=== PATIENT | female | born 1985 | race American Indian/Alaskan Native ===

== ENCOUNTER 2016-09-28 12:35 | Emergency (ER) | payer OTHER ==
--- NOTE | 2016-09-28 16:48 | Emergency Department Report ---
ED ENT HPI - General Chief complaint: Sore Throat Stated complaint: SORE THROAT Source: patient, family Mode of arrival: Ambulatory Limitations: No Limitations - History of Present Illness MD complaint: sore throat, difficulty swallowing -: Gradual Location: throat Severity: mild Quality: constant Consistency: constant Worsens with: swallowing, eating Associated Symptoms: pain with swallowing, sore throat. denies: fever, cough, toothache - Related Data Previous Rx's Medication Instructions Recorded Last Taken Type Ketorolac [Toradol] 10 mg PO Q6H PRN #20 tablet 09/28/16 Unknown Rx Allergies Allergy/AdvReac Type Severity Reaction Status Date / Time No Known Allergies Allergy Unverified 09/28/16 13:07 ED Dental HPI - General Chief complaint: Sore Throat Stated complaint: SORE THROAT - Related Data Previous Rx's Medication Instructions Recorded Last Taken Type Ketorolac [Toradol] 10 mg PO Q6H PRN #20 tablet 09/28/16 Unknown Rx Allergies Allergy/AdvReac Type Severity Reaction Status Date / Time No Known Allergies Allergy Unverified 09/28/16 13:07 ED Review of Systems ROS: Stated complaint: SORE THROAT Other details as noted in HPI Constitutional: denies: chills, fever Eyes: denies: eye pain, eye discharge, vision change ENT: throat pain. denies: ear pain, dental pain, congestion Respiratory: denies: cough, shortness of breath, wheezing Cardiovascular: denies: chest pain, palpitations Endocrine: no symptoms reported Gastrointestinal: denies: abdominal pain, nausea, diarrhea Genitourinary: denies: urgency, dysuria, discharge Musculoskeletal: denies: back pain, joint swelling, arthralgia Skin: denies: rash, lesions Neurological: denies: headache, weakness, paresthesias Psychiatric: denies: anxiety, depression Hematological/Lymphatic: denies: easy bleeding, easy bruising ED Past Medical Hx - Past Medical History Previous Medical History?: No - Surgical History Past Surgical History?: No - Social History Smoking Status: Never Smoker Substance Use Type: None - Medications Home Medications: Home Medications Medication Instructions Recorded Confirmed Last Taken Type Ketorolac [Toradol] 10 mg PO Q6H PRN #20 tablet 09/28/16 Unknown Rx ED Physical Exam - General Limitations: Language Barrier General appearance: alert, in no apparent distress - Head Head exam: Present: atraumatic, normocephalic - Eye Eye exam: Present: normal appearance, PERRL, EOMI - ENT ENT exam: Present: normal exam, normal orophraynx, mucous membranes moist, TM's normal bilaterally - Neck Neck exam: Present: normal inspection - Respiratory Respiratory exam: Present: normal lung sounds bilaterally. Absent: respiratory distress, wheezes, stridor - Cardiovascular Cardiovascular Exam: Present: regular rate, normal rhythm. Absent: systolic murmur, diastolic murmur, rubs, gallop - GI/Abdominal GI/Abdominal exam: Present: soft, normal bowel sounds. Absent: tenderness, guarding - Extremities Exam Extremities exam: Present: normal inspection - Back Exam Back exam: Present: normal inspection - Neurological Exam Neurological exam: Present: alert, oriented X3, normal gait - Psychiatric Psychiatric exam: Present: normal affect, normal mood - Skin Skin exam: Present: warm, dry, intact, normal color. Absent: rash ED Course Vital Signs 09/28/16 13:08 Temperature 98.2 F Pulse Rate 97 H Blood Pressure 114/72 ED Medical Decision Making - Lab Data Negative strep test. Culture pending. - Medical Decision Making 31 year old female presents to ED with sore throat x2 days. patient has no signs of swelling or abscess on examination and is afebrile. patient is stable, neurologically intact and in no acute distress. patient was given codeine syrup and toradol for pain relief during ED visit and RX for toradol for pain management. Critical care attestation.: If time is entered above; I have spent that time in minutes in the direct care of this critically ill patient, excluding procedure time. ED Disposition Clinical Impression: Viral pharyngitis Disposition: DISCHARGED TO HOME OR SELFCARE Is pt being admited?: No Does the pt Need Aspirin: No Condition: Stable Prescriptions: Ketorolac [Toradol] 10 mg PO Q6H PRN #20 tablet PRN Reason: Pain Referrals: PRIMARY CARE,MD [Primary Care Provider] - 3-5 Days Forms: Work/School Release Form(ED)
[2016-09-28] MEDS ORDERED: TORADOL IM ONE (17:44)
[2016-09-28] MEDS ORDERED: PHENERGAN/CODEINE 6.25-10 MG/5ML PO ONE (18:00)
[2016-09-28 18:15] VITALS: BP 123/71
== END 2016-09-28 18:15 | disposition home or self-care (01) ==
LOC: ED 12:35
DX: J02.9 Acute pharyngitis, unspecified (principal)
CPT/HCPCS: 81025; 87116; 87430; 96372; 99283; J1885

== ENCOUNTER 2016-10-04 10:29 | Inpatient (IN) | payer OTHER ==
[2016-10-04 11:55] LABS: Basophils % (Auto) 0.3 % (0.0-1.8); Eosinophils % (Auto) 0.7 % (0.0-4.3); Hematocrit 35.9 % (30.3-42.9); Hemoglobin 11.7 gm/dl (10.1-14.3); Mean Corpuscular HGB Conc 33 % (30-34); Mean Corpuscular Hemoglobin 27 pg (28-32); Mean Corpuscular Volume 83 fl (79-97); Platelet Count 171 K/mm3 (140-440); Red Blood Count 4.35 M/mm3 (3.65-5.03); Red Cell Distribution Width 13.2 % (13.2-15.2); White Blood Count 5.4 K/mm3 (4.5-11.0)
[2016-10-04 12:17] LABS: Albumin 3.6 g/dL (3.9-5); Albumin/Globulin Ratio 1.2 %; BUN/Creatinine Ratio 5.9; Bilirubin,Total 0.4 mg/dL (0.1-1.2); Calcium 8.8 mg/dL (8.4-10.2); Chloride 105.5 mmol/L (98-107); Potassium 4.1 mmol/L (3.6-5.0); Total Protein 6.5 g/dL (6.3-8.2)
[2016-10-04] MEDS ORDERED: NACL 0.9% 1000 ML 1,000 ML IV ONE (17:01)
[2016-10-04] MEDS ORDERED: MORPHINE IV ONE (17:01)
[2016-10-04] MEDS ORDERED: ZOFRAN IV ONE (17:01)
[2016-10-04 17:53] LABS: Bilirubin,Urine NEG (Negative); Blood,Urine NEG (Negative); Ketones,Urine NEG (Negative); Leukocyte Esterase,Urine SM (Negative); Mucus,Urine FEW /HPF; Nitrite,Urine NEG (Negative); Urobilinogen,Urine < 2.0 mg/dL (<2.0)
--- NOTE | 2016-10-04 17:59 | Emergency Department Report ---
ED Abdominal Pain HPI - General Chief Complaint: Abdominal Pain Stated Complaint: ABD PAIN Time Seen by Provider: 10/04/16 16:50 Source: patient, old records reviewed Mode of arrival: Ambulatory Limitations: No Limitations - History of Present Illness Initial Comments: 31-year-old female with no significant past medical history presents hospital complaining of abdominal pain, nausea, and vomiting 3 days. Patient was seen here on September 28 for sore throat. Diagnosed with viral pharyngitis after negative stress test. Discharged on Toradol. Patient developed GI symptoms for the past 3 days. Complains of constant lower abdominal pain radiating to the back with by mouth intolerance secondary to vomiting. Denies diarrhea, melena, hematochezia, or documented fever. Patient unable to characterize pain , moderate in intensity and worse with palpation. - Related Data Previous Rx's Medication Instructions Recorded Last Taken Type Ketorolac [Toradol] 10 mg PO Q6H PRN #20 tablet 09/28/16 Unknown Rx Allergies Allergy/AdvReac Type Severity Reaction Status Date / Time No Known Allergies Allergy Unverified 09/28/16 13:07 ED Review of Systems ROS: Stated complaint: ABD PAIN Other details as noted in HPI Comment: All other systems reviewed and negative Other: Constitutional: No fevers chills or weight loss Eyes: No eye pain visual changes or discharge ENT: No ear pain or throat pain Neck: Denies pain Respiratory: Denies cough wheezing shortness of breath Cardiovascular: Denies chest pain, palpitations, syncope GI: As per HPI : Denies dysuria Musculoskeletal: Pain radiates to the back Skin: Denies rash, lesions, erythema Neurologic: Denies headache, numbness, weakness Psychiatric: Denies suicidal ideation, hallucinations ED Past Medical Hx - Past Medical History Previous Medical History?: No - Surgical History Past Surgical History?: No - Social History Smoking Status: Never Smoker Substance Use Type: None - Medications Home Medications: Home Medications Medication Instructions Recorded Confirmed Last Taken Type Ketorolac [Toradol] 10 mg PO Q6H PRN #20 tablet 09/28/16 Unknown Rx ED Physical Exam - General Limitations: No Limitations - Other Other exam information: General: No limitations, patient is alert in no acute distress Head exam: Atraumatic, normocephalic Eyes exam: Normal appearance, pupils equal reactive to light, extraocular movements intact ENT: Moist mucous membrane, normal oropharynx Neck exam: Normal inspection, full range of motion, no meningismus nontender Respiratory exam: Clear to auscultation bilateral, no wheezes, rales, crackles Cardiovascular: Normal rate and rhythm, normal heart sounds Abdomen: Soft, nondistended, right lower quadrant tenderness, with normal bowel sounds, no rebound, or guarding : No external lesions, white vaginal discharge, no CMT or adnexal tenderness Extremity: Full range of motion normal inspection no deformity Back: Normal Inspection, full range of motion, no tenderness Neurologic: Alert, oriented x3, cranial nerves intact, no motor or sensory deficit Psychiatric: normal affect, normal mood Skin: Warm, dry, intact ED Course Vital Signs 10/04/16 10/04/16 10/04/16 11:07 17:38 21:06 Temperature 98.5 F 98.8 F Pulse Rate 70 58 L 62 Respiratory 18 16 16 Rate Blood Pressure 109/71 Blood Pressure 116/72 128/78 [Left] O2 Sat by Pulse 100 96 100 Oximetry - Reevaluation(s) Reevaluation #1: 10/04/16 20:38 pt reports feeling better with ED treatment. - Consultations Consultation #1: 10/04/16 20:09 case d/w Nephro Dr Sanchez, Rec admission for renal insufficiency and vomiting ED Medical Decision Making - Lab Data Result diagrams: 10/04/16 11:14 10/04/16 11:14 Lab Results 10/04/16 10/04/16 10/04/16 Range/Units 11:14 11:14 17:16 WBC 5.4 (4.5-11.0) K/mm3 RBC 4.35 (3.65-5.03) M/mm3 Hgb 11.7 (10.1-14.3) gm/dl Hct 35.9 (30.3-42.9) % MCV 83 (79-97) fl MCH 27 L (28-32) pg MCHC 33 (30-34) % RDW 13.2 (13.2-15.2) % Plt Count 171 (140-440) K/mm3 Lymph % (Auto) 27.7 (13.4-35.0) % [place] % (Auto) 10.3 H (0.0-7.3) % Eos % (Auto) 0.7 (0.0-4.3) % Baso % (Auto) 0.3 (0.0-1.8) % Lymph # 1.5 (1.2-5.4) K/mm3 [place] # 0.6 (0.0-0.8) K/mm3 Eos # 0.0 (0.0-0.4) K/mm3 Baso # 0.0 (0.0-0.1) K/mm3 Seg Neutrophils % 61.0 (40.0-70.0) % Seg Neutrophils # 3.3 (1.8-7.7) K/mm3 Sodium 144 (137-145) mmol/L Potassium 4.1 (3.6-5.0) mmol/L Chloride 105.5 (98-107) mmol/L Carbon Dioxide 23 (22-30) mmol/L Anion Gap 20 mmol/L BUN 13 (7-17) mg/dL Creatinine 2.2 H (0.7-1.2) mg/dL Estimated GFR 31 ml/min BUN/Creatinine Ratio 5.90 % Glucose 91 (65-100) mg/dL Calcium 8.8 (8.4-10.2) mg/dL Total Bilirubin 0.40 (0.1-1.2) mg/dL AST 13 (5-40) units/L ALT 12 (7-56) units/L Alkaline Phosphatase 42 (35-129) units/L Total Protein 6.5 (6.3-8.2) g/dL Albumin 3.6 L (3.9-5) g/dL Albumin/Globulin Ratio 1.2 % Lipase 26 (13-60) units/L Urine Color Yellow (Yellow) Urine Turbidity Slightly-cloudy (Clear) Urine pH 6.0 (5.0-7.0) Ur Specific [place] 1.005 (1.003-1.030) Urine Protein 30 mg/dl (Negative) mg/dL Urine Glucose (UA) Neg (Negative) mg/dL Urine Ketones Neg (Negative) mg/dL Urine Blood Neg (Negative) Urine Nitrite Neg (Negative) Urine Bilirubin Neg (Negative) Urine Urobilinogen < 2.0 (<2.0) mg/dL Ur Leukocyte Esterase Sm (Negative) Urine WBC (Auto) 9.0 H (0.0-6.0) /HPF Urine RBC (Auto) 1.0 (0.0-6.0) /HPF U Epithel Cells (Auto) 8.0 (0-13.0) /HPF Urine Mucus Few /HPF Urine HCG, Qual (Negative) 10/04/16 Range/Units 17:16 WBC (4.5-11.0) K/mm3 RBC (3.65-5.03) M/mm3 Hgb (10.1-14.3) gm/dl Hct (30.3-42.9) % MCV (79-97) fl MCH (28-32) pg MCHC (30-34) % RDW (13.2-15.2) % Plt Count (140-440) K/mm3 Lymph % (Auto) (13.4-35.0) % [place] % (Auto) (0.0-7.3) % Eos % (Auto) (0.0-4.3) % Baso % (Auto) (0.0-1.8) % Lymph # (1.2-5.4) K/mm3 [place] # (0.0-0.8) K/mm3 Eos # (0.0-0.4) K/mm3 Baso # (0.0-0.1) K/mm3 Seg Neutrophils % (40.0-70.0) % Seg Neutrophils # (1.8-7.7) K/mm3 Sodium (137-145) mmol/L Potassium (3.6-5.0) mmol/L Chloride (98-107) mmol/L Carbon Dioxide (22-30) mmol/L Anion Gap mmol/L BUN (7-17) mg/dL Creatinine (0.7-1.2) mg/dL Estimated GFR ml/min BUN/Creatinine Ratio % Glucose (65-100) mg/dL Calcium (8.4-10.2) mg/dL Total Bilirubin (0.1-1.2) mg/dL AST (5-40) units/L ALT (7-56) units/L Alkaline Phosphatase (35-129) units/L Total Protein (6.3-8.2) g/dL Albumin (3.9-5) g/dL Albumin/Globulin Ratio % Lipase (13-60) units/L Urine Color (Yellow) Urine Turbidity (Clear) Urine pH (5.0-7.0) Ur Specific [place] (1.003-1.030) Urine Protein (Negative) mg/dL Urine Glucose (UA) (Negative) mg/dL Urine Ketones (Negative) mg/dL Urine Blood (Negative) Urine Nitrite (Negative) Urine Bilirubin (Negative) Urine Urobilinogen (<2.0) mg/dL Ur Leukocyte Esterase (Negative) Urine WBC (Auto) (0.0-6.0) /HPF Urine RBC (Auto) (0.0-6.0) /HPF U Epithel Cells (Auto) (0-13.0) /HPF Urine Mucus /HPF Urine HCG, Qual Negative (Negative) wet prep <20 clue cells, neg trich, neg yeast, gc/chl pending - Radiology Data Radiology results: report reviewed (ct abd/pelvis noncontrast: naf) - Medical Decision Making Patient CT unremarkable. She is feeling better with ED treatment. Case was discussed with nephrology. Admission recommended given the patient's acute vomiting in the setting of renal sufficiency. No previous creatinine available for comparison. No acute acidosis evidence on BMP. I suspect that Toradol may be the culprit in acute renal insufficiency. - Differential Diagnosis gastritis, appendicitis, gastroenteritis, UTI, cervicitis Critical Care Time: No Critical care attestation.: If time is entered above; I have spent that time in minutes in the direct care of this critically ill patient, excluding procedure time. ED Disposition Clinical Impression: Acute renal insufficiency, Vomiting, Abdominal pain Disposition: OP ADMITTED IP TO THIS HOSP Is pt being admited?: Yes Condition: Stable Time of Disposition: 20:40 (Dr Lopez/hosp)
--- NOTE | 2016-10-04 20:23 | Cat Scan Report ---
FINAL REPORT EXAM: CT ABDOMEN PELVIS WO CON HISTORY: rlq pain, vomiting TECHNIQUE: CT images obtained through the Abdomen and Pelvis following only oral administration of contrast. Transaxial,coronal and sagittal reformats are provided. PRIORS: None. FINDINGS: Imaged intrathoracic contents are unremarkable. Kidneys are normal in size, axis and position. No hydronephrosis or nephrolithiasis. The ureters are normal in course and caliber. No stones are seen within the urinary bladder. The liver, gallbladder, pancreas, spleen, and adrenal glands demonstrate a normal noncontrast appearance. Hollow enteric organs are normal in course and caliber. Positive enteric contrast is seen as far distally as the ileum appendix is normal. No intra-abdominal free air/fluid or lymphadenopathy. Aorta is normal in course and caliber. Anteverted uterus. No free fluid in the pelvis. Superficial soft tissues are unremarkable. No acute or aggressive appearing skeletal findings. IMPRESSION: Normal appendix. No acute intra-abdominal process.
--- NOTE | 2016-10-04 23:16 | History and Physical Report ---
History of Present Illness Date of examination: 10/04/16 Date of admission: 10/04/16 20:40 Chief complaint: Pain in right kidney [place] language line used History of present illness: Patient is 31 yo Citizen [place]speaking woman without any chronic medical problems who presents with moderately intense right sharp intermittent nonradiating pains in her flank area for 3 days without aggravating or relieving factors. Patient came here to [facility] ED on 09/28/2016 for sore throat and was given home prescriptions of Bactrim, Ketolac and omeprazole, no baseline labs were taken at that time. Patient is being admitted because her creatinine is 2.2 without a known baseline. Past History Past Medical History: other (as hpi) Past Surgical History: No surgical history Social history: no significant social history, full code. denies: smoking Family history: no significant family history Medications and Allergies Allergies Allergy/AdvReac Type Severity Reaction Status Date / Time No Known Allergies Allergy Unverified 09/28/16 13:07 Home Medications Medication Instructions Recorded Confirmed Last Taken Type Ketorolac [Toradol] 10 mg PO Q6H PRN #20 tablet 09/28/16 Unknown Rx Active Meds: Active Medications Sodium Chloride (Nacl 0.9% 1000 Ml) 1,000 mls @ 125 mls/hr IV DIRECT [facility] Review of Systems All systems: negative (as HPI and all other ROS reviewed and negative.) Exam - Physical Exam Narrative exam: GEN: WDWN, NAD, AWAKE, ALERT, ORIENTATED x 3 HEENT: NCAT, PERRL, EOMI, OP CLEAR NECK: SUPPLE, NO THYROMEGALY, NO JVD, NO LAD CVS: RRR, NORMAL S1S2 LUNGS/CHEST: CTA B, NORMAL CHEST EXPANSION B, GOOD AIR ENTRY B ABD: SOFT NTND, GBS, NO REBOUND OR GUARDING, no cva tenderness EXT/SKIN: NO SIGNIFICANT EDEMA OR RASH, cap refill ~ 2 seconds MSK: FROM X 4 EXTREMITIES NEURO: CN 2-12 GROSSLY INTACT, NO new FOCAL DEFICITS PSY: CALM - Constitutional Vitals: Temp Pulse Resp BP Pulse Ox 98.8 F 62 16 128/78 100 10/04/16 21:06 10/04/16 21:06 10/04/16 21:06 10/04/16 21:06 10/04/16 21:06 Results - Labs CBC & Chem 7: 10/04/16 11:14 10/04/16 11:14 Assessment and Plan Patient is 31 yo Citizen [place]-speaking (Language Line used) woman without any chronic medical problems who presents with moderately intense right sharp intermittent nonradiating pains in her flank area for 3 days without aggravating or relieving factors. Patient came here to [facility] ED on 09/28/2016 for sore throat and was given home prescriptions of Bactrim, Ketolac and omeprazole (pill bottle reviewed), no baseline labs were taken at that time. Patient is being admitted because her creatinine is 2.2 without a known baseline. She is accompanied by her brother, Devon, who speaks limited Romansh. -Acute renal failure most likely vasomotor nephropathy: IV fluids, renal ultrasound, nephrology contacted by ED -Language barrier -UTI on Bactrim: stop all nephrotoxic drugs, get urine ctx, treat with IV Rocephin -Dehydration: IV fluids -DVT prophylaxis: SCDs and subcutaneous heparin
[2016-10-04] MEDS ORDERED: ZOFRAN IV PRN (23:26)
[2016-10-05] MEDS: NACL 0.9% 1000 ML 1,000 ML IV SCH ×3 (02:41→21:55)
--- NOTE | 2016-10-05 06:17 | Ultrasound Report ---
FINAL REPORT PROCEDURE: US RENAL BILAT TECHNIQUE: Real-time sonography in multiple planes of the kidneys, ureters and urinary bladder was performed with image documentation. CPT 28525 HISTORY: ARF COMPARISON: No prior studies are available for comparison. FINDINGS: RIGHT kidney: Normal echotexture. No focal renal mass, calculus, or hydronephrosis. Length: 11.8 cm. LEFT kidney: Normal echotexture. No focal renal mass, calculus, or hydronephrosis. Length: 12 1cm. Bladder: Normal. IMPRESSION: Normal Examination.
[2016-10-05 09:03] LABS: Hematocrit 36.1 % (30.3-42.9); Hemoglobin 11.7 gm/dl (10.1-14.3); Mean Corpuscular HGB Conc 32 % (30-34); Mean Corpuscular Hemoglobin 27 pg (28-32); Mean Corpuscular Volume 84 fl (79-97); Platelet Count 162 K/mm3 (140-440); Red Blood Count 4.29 M/mm3 (3.65-5.03); White Blood Count 5.1 K/mm3 (4.5-11.0)
[2016-10-05 09:23] LABS: BUN/Creatinine Ratio 5.65; Calcium 8.5 mg/dL (8.4-10.2); Potassium 3.9 mmol/L (3.6-5.0)
[2016-10-05] MEDS: ROCEPHIN/NS 1 GM/50 ML 1 GM/50 ML BAG IV SCH (10:16)
[2016-10-05] MEDS: TYLENOL PO PRN ×2 (10:16→18:26)
--- NOTE | 2016-10-05 11:34 | Progress Note ---
Assessment and Plan Assessment and plan: Acute renal failure. Etiology most likely vasomotor nephropathy. Cont. IV fluids, CT A/P and renal US negative. Nephrology consultation pending. UTI. Cont. Rocephin No nephrotoxic drugs. F/U urine cx. Dehydration: IV fluids DVT prophylaxis: SCDs and subcutaneous heparin History Interval history: No new issues overnight Hospitalist Physical - Constitutional Vitals: Temp Pulse Resp BP Pulse Ox 98 F 64 16 114/68 98 10/05/16 08:00 10/05/16 08:00 10/05/16 10:16 10/05/16 08:00 10/05/16 08:00 General appearance: Present: no acute distress, well-nourished - EENT Eyes: Present: PERRL, EOM intact ENT: hearing intact, clear oral mucosa, dentition normal - Neck Neck: Present: supple, normal ROM - Respiratory Respiratory effort: normal Respiratory: bilateral: CTA - Cardiovascular Rhythm: regular Heart Sounds: Present: S1 & S2. Absent: gallop, rub - Extremities Extremities: no ischemia, No edema, Full ROM - Abdominal General gastrointestinal: soft, non-tender, non-distended, normal bowel sounds - Integumentary Integumentary: Present: clear, warm, dry - Neurologic Neurologic: CNII-XII intact, moves all extremities Results - Labs CBC & Chem 7: 10/05/16 08:04 10/05/16 08:04 Labs: Laboratory Last Values WBC 5.1 K/mm3 (4.5-11.0) 10/05/16 08:04 RBC 4.29 M/mm3 (3.65-5.03) 10/05/16 08:04 Hgb 11.7 gm/dl (10.1-14.3) 10/05/16 08:04 Hct 36.1 % (30.3-42.9) 10/05/16 08:04 MCV 84 fl (79-97) 10/05/16 08:04 MCH 27 pg (28-32) L 10/05/16 08:04 MCHC 32 % (30-34) 10/05/16 08:04 RDW 13.0 % (13.2-15.2) L 10/05/16 08:04 Plt Count 162 K/mm3 (140-440) 10/05/16 08:04 Lymph % (Auto) 27.7 % (13.4-35.0) 10/04/16 11:14 [place] % (Auto) 10.3 % (0.0-7.3) H 10/04/16 11:14 Eos % (Auto) 0.7 % (0.0-4.3) 10/04/16 11:14 Baso % (Auto) 0.3 % (0.0-1.8) 10/04/16 11:14 Lymph # 1.5 K/mm3 (1.2-5.4) 10/04/16 11:14 [place] # 0.6 K/mm3 (0.0-0.8) 10/04/16 11:14 Eos # 0.0 K/mm3 (0.0-0.4) 10/04/16 11:14 Baso # 0.0 K/mm3 (0.0-0.1) 10/04/16 11:14 Seg Neutrophils % 61.0 % (40.0-70.0) 10/04/16 11:14 Seg Neutrophils # 3.3 K/mm3 (1.8-7.7) 10/04/16 11:14 Sodium 144 mmol/L (137-145) 10/05/16 08:04 Potassium 3.9 mmol/L (3.6-5.0) 10/05/16 08:04 Chloride 106.0 mmol/L (98-107) 10/05/16 08:04 Carbon Dioxide 24 mmol/L (22-30) 10/05/16 08:04 Anion Gap 18 mmol/L 10/05/16 08:04 BUN 13 mg/dL (7-17) 10/05/16 08:04 Creatinine 2.3 mg/dL (0.7-1.2) H 10/05/16 08:04 Estimated GFR 30 ml/min 10/05/16 08:04 BUN/Creatinine Ratio 5.65 % 10/05/16 08:04 Glucose 99 mg/dL (65-100) 10/05/16 08:04 Calcium 8.5 mg/dL (8.4-10.2) 10/05/16 08:04 Total Bilirubin 0.40 mg/dL (0.1-1.2) 10/04/16 11:14 AST 13 units/L (5-40) 10/04/16 11:14 ALT 12 units/L (7-56) 10/04/16 11:14 Alkaline Phosphatase 42 units/L (35-129) 10/04/16 11:14 Total Protein 6.5 g/dL (6.3-8.2) 10/04/16 11:14 Albumin 3.6 g/dL (3.9-5) L 10/04/16 11:14 Albumin/Globulin Ratio 1.2 % 10/04/16 11:14 Lipase 26 units/L (13-60) 10/04/16 11:14 Urine Color Yellow (Yellow) 10/04/16 17:16 Urine Turbidity Slightly-cloudy (Clear) 10/04/16 17:16 Urine pH 6.0 (5.0-7.0) 10/04/16 17:16 Ur Specific [place] 1.005 (1.003-1.030) 10/04/16 17:16 Urine Protein 30 mg/dl mg/dL (Negative) 10/04/16 17:16 Urine Glucose (UA) Neg mg/dL (Negative) 10/04/16 17:16 Urine Ketones Neg mg/dL (Negative) 10/04/16 17:16 Urine Blood Neg (Negative) 10/04/16 17:16 Urine Nitrite Neg (Negative) 10/04/16 17:16 Urine Bilirubin Neg (Negative) 10/04/16 17:16 Urine Urobilinogen < 2.0 mg/dL (<2.0) 10/04/16 17:16 Ur Leukocyte Esterase Sm (Negative) 10/04/16 17:16 Urine WBC (Auto) 9.0 /HPF (0.0-6.0) H 10/04/16 17:16 Urine RBC (Auto) 1.0 /HPF (0.0-6.0) 10/04/16 17:16 U Epithel Cells (Auto) 8.0 /HPF (0-13.0) 10/04/16 17:16 Urine Mucus Few /HPF 10/04/16 17:16 Urine HCG, Qual Negative (Negative) 10/04/16 17:16
[2016-10-05] MEDS ORDERED: FLUARIX QUAD 2016-2017(36 MOS+) IM ONE (12:00)
[2016-10-05] MEDS ORDERED: PNEUMOVAX 23 IM ONE (12:00)
--- NOTE | 2016-10-05 14:03 | Consultation ---
History of Present Illness - Reason for Consult Consult date: 10/05/16 acute renal failure Requesting physician: ANDRES OLIVER - History of Present Illness History of present illness: Patient is 31 yo [place]-speaking woman without any chronic medical problems who presents with moderately intense right sharp intermittent nonradiating pains in her flank area for 3 days without aggravating or relieving factors. Patient came here to [facility] ED on 09/28/2016 for sore throat and was given home prescriptions of Bactrim, Ketolac and omeprazole, no baseline labs were taken at that time. Patient is being admitted because her creatinine is 2.2 without a known baseline. Past History Past Medical History: other (as hpi) Past Surgical History: No surgical history Social history: no significant social history, full code. denies: smoking Family history: no significant family history Past History Past Medical History: other (as hpi) Past Surgical History: No surgical history Social history: no significant social history, full code. denies: smoking Family history: no significant family history Medications and Allergies Allergies Allergy/AdvReac Type Severity Reaction Status Date / Time No Known Allergies Allergy Unverified 09/28/16 13:07 Home Medications Medication Instructions Recorded Confirmed Last Taken Type Ketorolac [Toradol] 10 mg PO Q6H PRN #20 tablet 09/28/16 10/05/16 Unknown Rx Active Meds: Active Medications Acetaminophen (Tylenol) 650 mg PO Q6H PRN PRN Reason: Non Cardiac Pain or Temp>100.5 Last Admin: 10/05/16 10:16 Dose: 650 mg Heparin Sodium (Porcine) (Heparin) 5,000 unit SUB-Q Q12HR [facility] Sodium Chloride (Nacl 0.9% 1000 Ml) 1,000 mls @ 125 mls/hr IV DIRECT [facility] Last Admin: 10/05/16 02:41 Dose: 125 mls/hr Ceftriaxone Sodium (Rocephin/Ns 1 Gm/50 Ml) 1 gm in 50 mls @ 100 mls/hr IV Q24HR [facility] PRN Reason: Protocol Last Admin: 10/05/16 10:16 Dose: 100 mls/hr Ondansetron HCl (Zofran) 4 mg IV Q4H PRN PRN Reason: Nausea And Vomiting Review of Systems Constitutional: fatigue, weakness, malaise Gastrointestinal: abdominal pain, nausea, vomiting Exam - Vital Signs Vital signs: Vital Signs Temp Pulse Resp BP Pulse Ox 98.5 F 70 18 109/71 100 10/04/16 11:07 10/04/16 11:07 10/04/16 11:07 10/04/16 11:07 10/04/16 11:07 - Physical Exam Narrative exam: GEN: WDWN, NAD, AWAKE, ALERT, ORIENTATED x 3 HEENT: NCAT, PERRL, EOMI, OP CLEAR NECK: SUPPLE, NO THYROMEGALY, NO JVD, NO LAD CVS: RRR, NORMAL S1S2 LUNGS/CHEST: CTA B, NORMAL CHEST EXPANSION B, GOOD AIR ENTRY B ABD: SOFT NTND, GBS, NO REBOUND OR GUARDING, no cva tenderness EXT/SKIN: NO SIGNIFICANT EDEMA OR RASH, cap refill ~ 2 seconds MSK: FROM X 4 EXTREMITIES NEURO: CN 2-12 GROSSLY INTACT, NO new FOCAL DEFICITS PSY: CALM Results - Lab Results 10/05/16 08:04 10/05/16 08:04 Most recent lab results Calcium 8.5 mg/dL (8.4-10.2) 10/05/16 08:04 Assessment and Plan Impression: * EMERITA * Nsaids exposure--?AIN * uti * nausea/emesis * malaise Plan: * daily lytes * iv abx for uti * normal renal us * urine eos to r/o AIN * strict i/os * avoid nephrotoxins * stop NSAIDS, bactrim * likely emerita due to medication side effect and uti * home in am if cr stable
--- NOTE | 2016-10-05 17:19 | Admit Criteria Form ---
Admission Criteria Documentation: RENAL FAILURE, ACUTE Clinical Indications for Admission to Inpatient Care ( Place 'X' for any and all applicable criteria): Admission is indicated for ALL (if I & II) or III of the following [A](2)(3)(4)( 5)(6)(7): [ ]I. Acute renal failure as indicated by ANY ONE of the following: [ ]a) A 3-fold rise in serum creatinine from baseline [ ]b) Serum creatinine greater than 4 mg/dL (354 micromoles/L) with an acute rise greater than 0.5 mg/dL (44.2 micromoles/L) [ ]c) Reduction of more than 75% in estimated glomerular filtration rate from baseline [ ]d) Estimated glomerular filtration rate less than 35 mL/min/1.73m2 (0.59mL/sec/1.73m2)in a child up to 18 years of age [ ]e) Anuria indicated by ALL of the following: [ ]i) Adequate volume status [ ]ii) Cessation of urine output indicated by ANY ONE of the following: [ ]1) Urine output less than 0.3 mL/kg/hr for 24 hours [ ]2) Anuria (urine output less than 0.1 mL/kg/ hr) for 12 hours [ X] II. Renal failure cannot be managed in an outpatient setting or observational care setting as indicating by ANY ONE of the following: [ ]a) Altered mental status that is severe or persistent [ ]b) Volume overload or Respiratory distress (eg, clinically significant pulmonary edema) that is severe or persistent [ ]c) Cardiac arrhythmias of immediate concern [ ]d) Hemodynamic instability [ ]e) Clinically significant electrolyte abnormality that requires inpatient care (eg, hyperkalemia with severe ECG findings)[B] [ ]f) Clinically significant metabolic abnormality (eg, acidosis) that is severe or persistent [ ]g) Acute treatment of renal failure (eg, renal replacement therapy) not feasible or appropriate in observational care setting [ ]h) Clinical situation too unstable or uncertain (eg, inadequate urine output, ongoing decline in renal function, etiology unclear) [ ]i) Necessary support and caregiver ability to comply with outpatient treatment cannot be arranged in observation care timeframe (eg, within 24 hours) [X ]j) Other significant finding or clinical condition judged not to be within scope of observation care [X ]III.General contraindications and/or Inappropriate clinical situations for Observational Care in patients with Acute Renal Failure, when ANY ONE of the following is required: [ X]a) Prediction of prolongation of LOS based on ANY ONE of the following may be considered as a contraindication for observational care 2, 3, 4, 5, 6, 7, 8 , 9, 10, 11 [ ]i) Age > 65 yrs. [ ]ii) Patient arriving by ambulance [ ]iii) Patient with high acuity [ ]iv) Patient requiring vital sign monitoring [ X]v) Patient on IV medication [ ]b) Systolic blood pressures 180mmHg 3,12 [ ]c) Patient with altered mental status including delirium and other alteration of consciousness, (3) [ ]d) Patient whose discharge disposition will be to a fpc home or rehabilitation home should not be managed in Emergency Department Observation Unit. CMS rule requires 3 days hospital stay before such placement.3,13 [ ]e) Patient with failure to thrive due to broad array of etiologies 3, 16,17 [ ]f) Inability to ambulate 3,14 Extended stay beyond goal length of stay may be needed for(13) [ ]a) Continuing uremic complications [ ]b) Care for comorbidities [ ]c) acute renal failure [ ]d) Need for dialysis The original [employer] content created by [employer] has been revised. The portions of the content which have been revised are identified through the use of italic text or in bold, and [facility] has neither reviewed nor approved the modified material. All other unmodified content is copyright [facility] [employer]. Please see references footnoted in the original [facility] edition 2016 Admission Criteria Met: Yes
[2016-10-05] MEDS: HEPARIN SUB-Q SCH (21:50)
[2016-10-06] MEDS: NACL 0.9% 1000 ML 1,000 ML IV SCH (06:22)
[2016-10-06 08:34] VITALS: BP 116/70
--- NOTE | 2016-10-06 08:39 | Discharge Summary ---
Providers - Providers Date of Admission: 10/04/16 20:40 Date of discharge: 10/06/16 Attending physician: ANDRES OLIVER Primary care physician: QA MANAGER Hospitalization Reason for admission: renal failure, uti Condition: Stable Hospital course: Patient is 31 yo [place]-speaking woman without any chronic medical problems who presented with moderately intense right sharp intermittent nonradiating pains in her flank area for 3 days without aggravating or relieving factors. Patient came here to [facility] ED on 09/28/2016 for sore throat and was given home prescriptions of Bactrim, Ketolac and omeprazole but no baseline labs were taken at that time. Patient was admitted because her creatinine is 2.2 without a known baseline. Patient was seen by nephrology in consultation and felt that possible etiology was related to acute kidney injury versus NSAID exposure or acute interstitial nephritis. Patient underwent CT scan of the abdomen and pelvis as well as renal ultrasound which were both found to be negative. Nephrology felt that the elevated creatinine was related to acute kidney injury due to medication side effect (NSAIDs, Bactrim) and UTI. Patient's creatinine stabilized and was felt to receive maximal hospital benefit for discharge. Patient is follow-up as an outpatient. Discharge time 35 minutes. Disposition: DISCHARGED TO HOME OR SELFCARE Time spent for discharge: 35 - Discharge Diagnoses (1) UTI (urinary tract infection) Status: Acute Qualifiers: Urinary tract infection type: U Hematuria presence: H Indwelling urinary catheter type: I Encounter type: E (2) EMERITA (acute kidney injury) Status: Acute (3) Abdominal pain Status: Acute Qualifiers: Abdominal location: A (4) Acute renal insufficiency Status: Acute Core Measure Documentation - Palliative Care Palliative Care/ Comfort Measures: Not Applicable - Core Measures Any of the following diagnoses?: none Exam - Constitutional Vitals: Temp Pulse Resp BP Pulse Ox 98.4 F 60 18 116/70 97 10/06/16 08:00 10/06/16 08:00 10/06/16 08:00 10/06/16 08:00 10/06/16 08:00 General appearance: Present: no acute distress, well-nourished - EENT Eyes: Present: PERRL ENT: hearing intact, clear oral mucosa - Neck Neck: Present: supple, normal ROM - Respiratory Respiratory effort: normal Respiratory: bilateral: CTA - Cardiovascular Heart Sounds: Present: S1 & S2. Absent: rub, click - Extremities Extremities: pulses symmetrical, No edema Peripheral Pulses: within normal limits - Abdominal General gastrointestinal: Present: soft, non-tender, non-distended, normal bowel sounds Female genitourinary: Present: normal - Integumentary Integumentary: Present: clear, warm, dry - Musculoskeletal Musculoskeletal: gait normal, strength equal bilaterally - Psychiatric Psychiatric: appropriate mood/affect, intact judgment & insight - Neurologic Neurologic: CNII-XII intact, moves all extremities Plan Activity: no restrictions Weight Bearing Status: Full Weight Bearing Diet: regular Follow up with: PRIMARY CARE, [Primary Care Provider] - 7 Days Prescriptions: Cefuroxime Axetil [Ceftin] 500 mg PO Q12H #10 tablet
[2016-10-06 08:52] LABS: BUN/Creatinine Ratio 5.29; Calcium 8.5 mg/dL (8.4-10.2)
[2016-10-06] MEDS: HEPARIN SUB-Q SCH (10:07)
[2016-10-06] MEDS: ROCEPHIN/NS 1 GM/50 ML 1 GM/50 ML BAG IV SCH (10:10)
--- NOTE | 2016-10-06 10:36 | Progress Note ---
Assessment and Plan Impression: * EMERITA * Nsaids exposure--?AIN * uti * nausea/emesis * malaise Plan: * daily lytes * iv abx for uti, home with po cipro * normal renal us * urine eos to r/o AIN pending * strict i/os * avoid nephrotoxins * stop NSAIDS, bactrim * likely emerita due to medication side effect and uti * Ok to dc home, follow up office 1 week Subjective Date of service: 10/06/16 Principal diagnosis: emerita Interval history: resting in bed Objective - Exam Narrative Exam: GEN: WDWN, NAD, AWAKE, ALERT, ORIENTATED x 3 HEENT: NCAT, PERRL, EOMI, OP CLEAR NECK: SUPPLE, NO THYROMEGALY, NO JVD, NO LAD CVS: RRR, NORMAL S1S2 LUNGS/CHEST: CTA B, NORMAL CHEST EXPANSION B, GOOD AIR ENTRY B ABD: SOFT NTND, GBS, NO REBOUND OR GUARDING, no cva tenderness EXT/SKIN: NO SIGNIFICANT EDEMA OR RASH, cap refill ~ 2 seconds MSK: FROM X 4 EXTREMITIES NEURO: CN 2-12 GROSSLY INTACT, NO new FOCAL DEFICITS PSY: CALM - Vital Signs Vital signs: Vital Signs - 12hr 10/06/16 10/06/16 01:00 08:00 Temperature 97.9 F 98.4 F Pulse Rate [ 64 60 Left Radial] Respiratory 18 18 Rate Blood Pressure 124/68 116/70 [Left Arm] O2 Sat by Pulse 100 97 Oximetry - Lab 10/05/16 08:04 10/06/16 07:54 Most recent lab results Calcium 8.5 mg/dL (8.4-10.2) 10/06/16 07:54
== END 2016-10-06 12:02 | disposition home or self-care (01) | DRG 689 ==
LOC: ED 10:29 → 3A 20:40
PROVIDERS: ADMIT Internal Medicine; ATTEND Hospitalist
DX: N39.0 Urinary tract infection, site not specified (principal); N17.0 Acute kidney failure with tubular necrosis; E86.0 Dehydration; N14.0 Analgesic nephropathy; T39.395A Adverse effect of other nonsteroidal anti-inflammatory drugs [NSAID], initial encounter; Y92.9 Unspecified place or not applicable; T37.0X5A Adverse effect of sulfonamides, initial encounter
CPT/HCPCS: 36415; 74176; 76770; 80048; 80053; 81001; 81025; 83690; 85025; 85027; 87086; 87210; 87591; 90686; 90732; 96374; 96375; J0696; J1644; J2270; J2405; J7030

== ENCOUNTER 2019-07-20 04:55 | Emergency (ER) | payer OTHER ==
[2019-07-20] MEDS ORDERED: LIDOCAINE-MPF (1%) 10 MG/1 ML VIAL 5 ML INFILTRATI ONE (06:06)
[2019-07-20] MEDS ORDERED: LIDOCAINE-MPF (1%) 10 MG/1 ML VIAL 5 ML ONE (06:07)
--- NOTE | 2019-07-20 06:09 | Emergency Department Report ---
Upper Extremity - HPI Chief Complaint: Extremity Injury, Upper Stated Complaint: RT HAND THUMB POSS INFECTION Time Seen by Provider: 07/20/19 06:05 Upper Extremity: Right Thumb (pain swelling ) Occurred When: 5 Days Mechanism: Unsure Severity: moderate Symptoms: Yes Swelling, No Pain with Movement, No Deformity, No Limited Range of Movement, No Numbness, No Weakness, No Bruising/Ecchymosis, No Laceration or Abrasion Other History: abscess/paronychia right thumb, pt denies fall ,injury, or trauma. ED Review of Systems ROS: Stated complaint: RT HAND THUMB POSS INFECTION Other details as noted in HPI Constitutional: denies: chills, fever Eyes: denies: eye pain, eye discharge, vision change ENT: as per HPI Respiratory: denies: cough, shortness of breath, wheezing Cardiovascular: denies: chest pain, palpitations Endocrine: no symptoms reported Gastrointestinal: denies: abdominal pain, nausea, vomiting, diarrhea Genitourinary: denies: urgency, dysuria, discharge Musculoskeletal: denies: back pain, joint swelling, arthralgia Skin: lesions (right thumb pain swelling ) Neurological: denies: headache, weakness, paresthesias Psychiatric: denies: anxiety, depression Hematological/Lymphatic: denies: easy bleeding, easy bruising ED Past Medical Hx - Past Medical History Previous Medical History?: Yes Hx Congestive Heart Failure: No Hx Diabetes: Yes Hx Asthma: No Hx COPD: No - Surgical History Past Surgical History?: No - Social History Smoking Status: Never Smoker Substance Use Type: None - Medications Home Medications: Home Medications Medication Instructions Recorded Confirmed Last Taken Type Cefuroxime Axetil [Ceftin] 500 mg PO Q12H #10 tablet 10/06/16 Unknown Rx Acetaminophen/Codeine [Tylenol 1 tab PO Q6H PRN #12 tab 07/20/19 Unknown Rx /Codeine # 3 tab] cephALEXin [Keflex] 500 mg PO Q8HR 10 Days #30 cap 07/20/19 Unknown Rx Upper Extremity Exam - Exam General: Vital signs noted. No distress. Alert and acting appropriately. Head and Torso: No HEENT Abnormality, No Neck Tenderness, No Chest/Lungs Abnormality, No Abdominal Tenderness, No Back Tenderness Shoulder Exam: Yes Normal Range of Motion in Shoulder, No Shoulder Tenderness, No Clavicle Tenderness, No Shoulder Deformity, No AC Joint Tenderness Arm Exam: No Arm/Humerus Tenderness, No Arm Deformity Elbow: No Elbow Tenderness, No Normal Range of Motion in Elbow, No Elbow Deformity Forearm: No Forearm Tenderness, No Forearm Deformity, No Pain with Pronation, No Pain with Supination Wrist: Yes Normal ROM in Wrist, No Wrist Tenderness, No Wrist Deformity, No Snuffbox Tenderness, No Pain with Axial Thumb Compression Hand: Yes Digit Tenderness (paronychia right thumb), Yes Normal ROM in Digit(s), No Hand Tenderness, No Hand Deformity, No Digit(s) Deformity, No Tendon Dysfunction CMS Exam: Yes Normal Distal Pulses, Yes Normal Capillary Refill, Yes Normal Distal Sensation, No Broken Skin ED Course Vital Signs 07/20/19 05:04 Temperature 98.9 F Pulse Rate 77 Respiratory 18 Rate Blood Pressure 111/68 O2 Sat by Pulse 100 Oximetry - I & D Right Finger Type of Procedure: Simple Site: right thumb nail Blade Size: 11 I & D Procedure: betadine prep, sterile drapes applied, sterile dressing applied Progress: Right thumb paronychia, site cleaned with Betadine solution, anesthesia with 1% lidocaine plain x1 cc, incision with 11 blade to nail bed with moderate purulent drainage, nailbed probe with sterile swab, no ability irrigated with 10 cc syringe, sterile dressings applied all bleeding is controlled, range of motion remains intact [employer] is less than 3 seconds bilat, distal pulses intact. ED Medical Decision Making - Medical Decision Making this is a right thumb paronychia , for I&D at this time , see procedure note, all bleeders controlled sterile dressing remains intact patient will be DC to home with prescription for Tylenol 3 as needed pain Keflex p.o. 3 times daily, patient will follow-up with primary care in 2 days for wound check, patient given wound care instructions both patient and verbalized agreement and understanding with same. Patient DC to home in stable condition at this time. Critical care attestation.: If time is entered above; I have spent that time in minutes in the direct care of this critically ill patient, excluding procedure time. ED Disposition Clinical Impression: Paronychia Disposition: DC-01 TO HOME OR SELFCARE Is pt being admited?: No Does the pt Need Aspirin: No Condition: Stable Instructions: Paronychia (ED) Prescriptions: cephALEXin [Keflex] 500 mg PO Q8HR 10 Days #30 cap Acetaminophen/Codeine [Tylenol /Codeine # 3 tab] 1 tab PO Q6H PRN #12 tab PRN Reason: pain Referrals: BAKARI NORWOOD MD [Staff Physician] - 3-5 Days Forms: Work/School Release Form(ED) Time of Disposition: 06:52
[2019-07-20 07:09] VITALS: BP 95/61
== END 2019-07-20 07:05 | disposition home or self-care (01) ==
LOC: ED 04:55
DX: L03.011 Cellulitis of right finger (principal); I10 Essential (primary) hypertension; E11.9 Type 2 diabetes mellitus without complications; Z79.899 Other long term (current) drug therapy
CPT/HCPCS: 99282